=== PATIENT | female | born 1940 | race Hispanic/Latino ===

== ENCOUNTER → 2018-02-02 | Day surgery (SDC) | payer MEDICARE ==
[2018-01-27 11:11] LABS: BASOPHILS # (AUTO) 0.1 (0.0-0.1); BASOPHILS % 0.6 % (0.0-1.0); EOSINOPHILS # (AUTO) 0.3 (0.0-0.4); EOSINOPHILS % 1.7 % (0.0-6.0); HEMATOCRIT 45.1 % (34.2-44.1); HEMOGLOBIN 13.9 g/dL (12.0-16.0); LYMPHOCYTES # (AUTO) 4.5 (1.0-3.2); MEAN CORPUSCULAR HEMOGLOBIN 25.6 pg (28-32); MEAN CORPUSCULAR HGB CONC 30.8 g/dL (31-35); MEAN CORPUSCULAR VOLUME 82.9 fL (81-99); MONOCYTES # (AUTO) 1.9 (0.2-0.8); MONOCYTES % 12.4 % (4.4-11.3); NEUTROPHILS # (AUTO) 8.3 (2.1-6.9); PLATELET COUNT 466 x10e3/uL (140-360); RED BLOOD COUNT 5.44 x10e6/uL (3.6-5.1); RED CELL DISTRIBUTION WIDTH 13.9 % (11.7-14.4)
[2018-01-27 13:01] LABS: ANISOCYTOSIS SLIGHT; EOSINOPHILS % (MANUAL) 4 % (0-7); LYMPHOCYTES % (MANUAL) 22 % (19-48); MONOCYTES % (MANUAL) 17 % (3.4-9.0); NEUTROPHILS % (MANUAL) 55 % (40-74)
[2018-01-27 13:02] LABS: HYPOCHROMASIA SLIGHT; PLATELET ESTIMATE SLIGHTLY INCREASED; PLATELET MORPHOLOGY COMMENT FEW LARGE; RBC MORPHOLOGY COMMENT NORMAL
[~2018-02-02] MED LIST: AMLODIPINE BESYL5 MG PO; ASPIRIN81 MG PO; FENTANYL CITRATE/PF 100MCG/2 ML INJ ONE; HYDROCHLOROTHIA25 MG PO; LISINOPRIL10 MG PO; METFORMIN HCL500 MG PO; MIDAZOLAM HCL 2 MG/2 ML VIAL ONE; MOVE FREE PO; OR PHACO EYE KIT ONE; OYST-CAL-500500 MG PO; PANTOPRAZOLE SO40 MG PO; PHENYLEPHRINE HCL 1% 10 MG/ML VIAL ONE; PREDNISONE20 MG PO; PRENATAL TABLE1 EAC1 PO; PREOP PHACO EYE KIT ONE; SIMVASTATIN20 MG PO; VITAMIN B PLUS PO
--- OUTSIDE RECORDS SUMMARY | 2018-02-02 10:43 | XMS REPORT ---
Author Author [facility] Address Unknown Phone Unavailable Care Team Providers Care Fraud Manager Name Role Phone TAMIKA BRAGG Unavailable Unavailable Problems This patient has no known problems. Allergies, Adverse Reactions, Alerts This patient has no known allergies or adverse reactions. Medications This patient has no known medications. Results Test Description Test Time Test Comments Text Results Atomic Results Result Comments CT ABDOMEN/PELVIS [place] [address] Patient Name: RACHAEL VIDAL MR #: [id number] : 1940 Age/Sex: 77/F Req # : [id number] Adm Physician: TAMIKA BRAGG MD Ordered by: TAMIKA BRAGG MD Report #: [id number] Location: [facility]/SURG2 Room/Bed: [facility] [place] Procedure: [id number] CT/CT ABDOMEN/PELVIS W Exam Date: Exam Time: REPORT STATUS: Signed PROCEDURE: CT ABDOMEN AND PELVIS WITH CONTRAST COMPARISON: CT abdomen/pelvis 01/29/17. INDICATIONS: ABNORMAL ADENOPATHY ON PREVIOUS CT, THROMBOCYTOPENIA TECHNIQUE: Multidetector CT scanning of the abdomen and pelvis was performed after the administration of 100 cc of nonionic contrast. Coronal and sagittal reformations were obtained. Routine protocol performed. FINDINGS: Lung bases: Clear. Visualized portion of the mediastinum is normal. Liver: Decreased in attenuation suggestive of steatosis. No evidence of mass. Biliary: Gallbladder is present and normal in appearance. No biliary ductal dilatation. Spleen: Normal size and attenuation without mass. Calcified splenic artery aneurysm measures 2.0 cm (previously, 1.8 x 2.0 cm). A second potential splenic artery aneurysm identified on prior exam measures 9 mm. Pancreas: Normal attenuation without mass or ductal dilatation. Adrenal Glands: No evidence of mass. Kidneys: Symmetric enhancement. No hydronephrosis. No cortical mass. Gastrointestinal: The stomach, small bowel, and large bowel are normal in diameter and wall thickness. Diverticulosis coli is present, particularly of the descending colon and sigmoid colon. No associated inflammation. The appendix is diminutive but otherwise normal. Aorta: Normal in diameter but diffuse atherosclerotic calcifications. There are calcifications throughout the visceral vasculature. Celiac and superior mesenteric arteries are patent. Lymph nodes: A left periaortic lymph node measures 1.0 x 1.4 cm (previously, 1.1 x 1.4 cm). An aortocaval lymph node measures 12 mm in maximum dimension and is stable. Mesenteric lymph nodes measure up to 10 mm. There is no haziness of the small bowel mesentery. There are no enlarged lymph nodes along the pelvic sidewalls or in the inguinal regions. Bladder: Normal. No ureteral dilatation Reproductive organs: The uterus is present and is atrophic with calcified fundal fibroid. No adnexal masses. A hyperattenuating rounded structure in the pelvic floor to the left of midline measures 1.7 x 1.7 cm and is stable. Musculoskeletal: Mild degenerative changes of the spine. There is trace anterolisthesis of L4 on L5 without pars defects. Soft tissues: The nodule in the left breast on previous exam is not visualized on this study, possibly due to differences in slice selection. CONCLUSION: 1. Nonspecific but mildly prominent lymph nodes are stable. No splenomegaly. 2. 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 3. Diverticulosis coli. No bowel obstruction or inflammation. 4. Stable lesion in the left perineum suggestive of a Bartholin's gland cyst containing debris. 5. Hepatic steatosis. Dictated by: Linda Felix M.D. on 08/28/2017 at 17:03 Electronically approved by: Linda Felix M.D. on 08/28/2017 at 17:03 Dictated By: LINDA FELIX MD Electronically Signed By: LINDA FELIX MD on 10/1702 Transcribed By: DORIE on 08/28 COPY TO: TAMIKA BRAGG MD
== END | disposition home or self-care (01) ==
LOC: OR 10:41
PROVIDERS: ATTEND Ophthalmology
DX: H25.12 Age-related nuclear cataract, left eye (principal); I10 Essential (primary) hypertension; E78.5 Hyperlipidemia, unspecified; M54.9 Dorsalgia, unspecified; Z01.810 Encounter for preprocedural cardiovascular examination; Z01.812 Encounter for preprocedural laboratory examination; Z87.891 Personal history of nicotine dependence
CPT/HCPCS: 36415; 66984; 85025; 93005; J2250; J2370; V2632

== ENCOUNTER → 2018-02-16 | Day surgery (SDC) | payer MEDICARE ==
[~2018-02-16] MED LIST changes: -PHENYLEPHRINE HCL 1% 10 MG/ML VIAL ONE
== END | disposition home or self-care (01) ==
LOC: OR 10:17
PROVIDERS: ATTEND Ophthalmology
DX: H25.11 Age-related nuclear cataract, right eye (principal); M19.90 Unspecified osteoarthritis, unspecified site; I10 Essential (primary) hypertension; E78.5 Hyperlipidemia, unspecified; E11.9 Type 2 diabetes mellitus without complications; I71.4 Abdominal aortic aneurysm, without rupture; F17.210 Nicotine dependence, cigarettes, uncomplicated; Z79.82 Long term (current) use of aspirin; Z88.0 Allergy status to penicillin
CPT/HCPCS: 36415; 66984; 82948; J2250; V2632